=== PATIENT | male | born 1935 | race Caucasian/White ===

== ENCOUNTER → 2016-12-11 | Outpatient (CLI) | payer MEDICARE, OTHER ==
[~2016-12-11] MED LIST: ISOVUE-370 76% 100ML VIAL (Q9967) As Ordered ONE
--- NOTE | 2016-12-11 17:36 | REP ---
CT ANGIOGRAM ABDOMEN PELVIS: 12/11/2016: Comparison: CT chest abdomen pelvis without contrast 11/30/2014. Clinical history: Status post abdominal aortic aneurysm repair with aortic stent graft placement for a 6 cm abdominal aortic aneurysm in 2005 at [facility]. Technique. The patient received a bolus of 75 mL as of Isovue-370 scanning of the chest with coronal and sagittal reconstructions and MIP reformats with thick slab technique. Surface renderings with reconstruction rotated about the longitudinal axis of the body also performed for the aorta and branches. CT abdomen: There are small bilateral effusions right greater than left. Compressive atelectatic change seen. There is cardiomegaly with left atrial and ventricular enlargement. Multi lead pacer is noted as before. No hiatal hernia. Stomach grossly intact. Liver and spleen are not enlarged and without focal lesion. Adrenal glands are normal. Kidneys show lobation and atrophy. Exophytic cysts are noted off the interpolar lower pole and upper pole of the left kidney. No definite stone or hydronephrosis. No hydroureter. The gallbladder is absent. The pancreas shows no mass, ductal dilatation or inflammatory change. Small bowel loops and colon are unchanged with scattered diverticula representing some diverticulosis without diverticulitis or colitis in the abdomen proper. Lung window review of all CT slices abdomen pelvis shows no perforation or free air. The abdominal aorta shows a maximum AP diameter of 4.5 cm transverse diameter 4 cm in its mid-course. Infrarenal graft noted with the left common iliac showing flow and little or no flow is seen in the right common area. Little opacification of that artery. Surgical clips and atherosclerotic calcifications noted. The anterior aspect of the distal graft is opacified with soft tissue density suggesting thrombus which extends into the right common iliac limb of the graft. Contrast in the left common iliac reaches the femoral artery. No periaortic or other retroperitoneal pathologic sized lymphadenopathy. Small distal aortic saccular aneurysm is unchanged from that vessel. CT pelvis: The bladder is quite distended and has a large diverticulum off the anterolateral aspect on the left for at least 20 cm vertical x transverse 10.7 cm x AP 10.2 cm with a left anterolateral bladder diverticulum measuring 5.4 x 4.1 x 8.4 cm. There is no hydroureter or ureteral stone on either side. Extensive diverticulosis left colon and sigmoid without diverticulitis. There is no ascites, adenopathy or free air. No ventral or inguinal hernia. Impression: 1. 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 2. AP diameter of the aorta and now 4.5 x 4 cm at the superior aspect of the graft previous was 4.4 x 4.1 cm in the same area. Next 3. Renal atrophy without hydronephrosis or mass. There is a prominent distended bladder and a large prostate along with the left anterolateral diverticulum off the bladder. No other significant acute finding. Heavy atherosclerotic calcifications in the iliac and femoral vessels. Signed by Jreemias Keita MD 12/11/2016 08:15 P
== END ==
LOC: M RAD 13:19
PROVIDERS: ATTEND Nurse Practitioner
DX: Z51.81 Encounter for therapeutic drug level monitoring (principal); Z79.899 Other long term (current) drug therapy; Z86.79 Personal history of other diseases of the circulatory system; Z95.828 Presence of other vascular implants and grafts; I74.5 Embolism and thrombosis of iliac artery; N26.1 Atrophy of kidney (terminal); N40.0 Benign prostatic hyperplasia without lower urinary tract symptoms; R93.8 Abnormal findings on diagnostic imaging of other specified body structures
CPT/HCPCS: 74174; Q9967

== ENCOUNTER → 2016-12-26 | Outpatient (REF) | payer MEDICARE, OTHER | LOC: M LAB REF 16:55 | PROVIDERS: ATTEND Internal Medicine Medical Oncology | DX: D46.9 Myelodysplastic syndrome, unspecified (principal) ==

== ENCOUNTER → 2017-09-17 | Outpatient (REF) | payer MEDICARE, OTHER ==
[2017-09-17 13:22] LABS: URIC ACID 4.8 MG/DL (3.5-7.2)
[2017-09-17 13:33] LABS: PTH INTACT 171.1 PG/ML (18.5-88.0)
[2017-09-17 13:33] LABS: VITAMIN B12 LEVEL 350 PG/ML (247-911)
== END ==
LOC: M LAB REF 12:39
DX: M10.9 Gout, unspecified (principal); N18.3 Chronic kidney disease, stage 3 (moderate); D64.9 Anemia, unspecified
CPT/HCPCS: 82746

== ENCOUNTER → 2018-01-09 | Outpatient (CLI) | payer MEDICARE, OTHER ==
[2018-01-09 15:18] LABS: HEMATOCRIT 44.9 % (42.0-52.0); HEMOGLOBIN 14.9 g/dl (13.5-17.5); MEAN CORPUSCULAR HEMOGLOBIN 34.1 pg (27.0-33.0); MEAN CORPUSCULAR HGB CONC 33.2 g/dl (32.0-36.5); MEAN CORPUSCULAR VOLUME 102.7 fl (80.0-96.0); PLATELET COUNT, AUTOMATED 228 10^3/uL (150-450); RED BLOOD COUNT 4.37 10^6/uL (4.30-6.10); RED CELL DISTRIBUTION WIDTH 14.9 % (11.5-14.5)
[2018-01-09 15:26] LABS: APPEARANCE, URINE CLEAR (CLEAR); BACTERIA, URINE AUTO NEGATIVE (NEGATIVE); BILIRUBIN, URINE AUTO NEGATIVE (NEGATIVE); BLOOD, URINE BLOOD NEGATIVE (NEGATIVE); COLOR, URINE YELLOW (YELLOW); GLUCOSE, URINE (UA) AUTO NEGATIVE (NEGATIVE); KETONE, URINE AUTO NEGATIVE (NEGATIVE); LEUKOCYTE ESTERASE, URINE AUTO NEGATIVE (NEGATIVE); NITRITE, URINE AUTO NEGATIVE (NEGATIVE); PROTEIN, URINE AUTO NEGATIVE (NEGATIVE); RBC, URINE AUTO 1 /HPF (0-3); SPECIFIC GRAVITY URINE AUTO 1.009 (1.002-1.035); SQUAMOUS EPITHELIAL CELL UR AU 0 /HPF (0-6); UROBILINOGEN, URINE AUTO 0.2 mg/dL (0.0-2.0); WBC, URINE AUTO 1 /HPF (0-3)
[2018-01-09 15:43] LABS: ALBUMIN 3.8 GM/DL (3.2-5.2); ALBUMIN/GLOBULIN RATIO 1.06 (1.00-1.93); ALKALINE PHOSPHATASE 76 U/L (45-117); ALT/SGPT 19 U/L (12-78); ANION GAP 8 MEQ/L (8-16); AST/SGOT 21 U/L (7-37); BILIRUBIN,TOTAL 0.8 MG/DL (0.2-1.0); BLOOD UREA NITROGEN 22 MG/DL (7-18); CALCIUM LEVEL 9.2 MG/DL (8.8-10.2); CARBON DIOXIDE LEVEL 32 MEQ/L (21-32); CHLORIDE LEVEL 102 MEQ/L (98-107); CREATININE FOR GFR 2.16 MG/DL (0.70-1.30); GLOMERULAR FILTRATION RATE 31.2 (>35); GLUCOSE, FASTING 86 MG/DL (70-100); POTASSIUM SERUM 4.1 MEQ/L (3.5-5.1); SODIUM LEVEL 142 MEQ/L (136-145); TOTAL PROTEIN 7.4 GM/DL (6.4-8.2)
== END ==
LOC: M LAB 14:33
DX: N39.0 Urinary tract infection, site not specified (principal)
CPT/HCPCS: 80053

== ENCOUNTER → 2018-01-22 | Outpatient (REF) | payer MEDICARE, OTHER | LOC: M LAB REF 14:14 | DX: N39.0 Urinary tract infection, site not specified (principal) | CPT/HCPCS: 87086 ==

== ENCOUNTER → 2018-03-10 | Outpatient (CLI) | payer MEDICARE, OTHER | LOC: M RAD 16:19 | DX: R33.9 Retention of urine, unspecified (principal); N18.3 Chronic kidney disease, stage 3 (moderate); N40.1 Benign prostatic hyperplasia with lower urinary tract symptoms; N28.1 Cyst of kidney, acquired | CPT/HCPCS: 76775 ==

== ENCOUNTER → 2018-03-10 | Outpatient (REF) | payer MEDICARE, OTHER ==
[2018-03-12 18:03] LABS: PSA SCREENING 2.57 NG/ML (< 4.0)
== END ==
LOC: M LAB REF 17:08
DX: N40.1 Benign prostatic hyperplasia with lower urinary tract symptoms (principal); N18.3 Chronic kidney disease, stage 3 (moderate); R33.8 Other retention of urine; Z12.5 Encounter for screening for malignant neoplasm of prostate
CPT/HCPCS: G0103

== ENCOUNTER → 2018-05-04 | Outpatient (REF) | payer MEDICARE, OTHER ==
[2018-05-04 13:31] LABS: BACTERIA, URINE AUTO 1+ (NEGATIVE); RBC, URINE AUTO 12 /HPF (0-3); SQUAMOUS EPITHELIAL CELL UR AU 0 /HPF (0-6); WBC, URINE AUTO TNTC /HPF (0-3)
== END ==
LOC: M SMT 13:07
PROVIDERS: ATTEND Specialist
DX: R33.9 Retention of urine, unspecified (principal)
CPT/HCPCS: 51798; 81015; 87086; G0463

== ENCOUNTER → 2018-05-06 | Outpatient (REF) | payer MEDICARE, OTHER ==
[2018-05-06 14:02] LABS: BACTERIA, URINE AUTO 1+ (NEGATIVE); RBC, URINE AUTO 5 /HPF (0-3); SQUAMOUS EPITHELIAL CELL UR AU 0 /HPF (0-6); WBC, URINE AUTO TNTC /HPF (0-3)
== END ==
LOC: M SMT 13:20
PROVIDERS: ATTEND Specialist
DX: R33.9 Retention of urine, unspecified (principal)

== ENCOUNTER 2019-04-21 15:30 | Day surgery (SDC) | payer MEDICARE, OTHER ==
[~2019-04-21] VITALS: Ht 172.7 cm; Wt 78.0 kg
[~2019-04-21 15:30] MED LIST changes: +AMIODARONE HCL 150 MG/100 ML PREMIXED BAG (NEXTERONE) As Ordered ONE; +ATOR40TA75 PO; +BACITRACIN PWD 50,000 UNITS VIAL As Ordered ONE; +ELIQ2.5T PO; +FEBU80TA PO; +FINA5TAB2 PO; +IRON65TA2 PO; +ISOVUE-300 61% 50ML VIAL (Q9967) As Ordered ONE; -ISOVUE-370 76% 100ML VIAL (Q9967) As Ordered ONE; +LEVO30TA PO; +LIDOCAINE 1% MDV 20ML VIAL SQ PRN; +LIDOCAINE 1% SDV INJ 30 ML VIAL As Ordered ONE; +LOPR1TAB7 PO; +LR 1,000 ML IV ONE; +ROCA0.25 PO; +TORS10TA3 PO; +XALA0.007 OU
[2019-04-21] MEDS ORDERED: ceFAZolin 2 GM/D5W 50 ML IV BAG (J0690 PER 500MG) As Ordered ONE (15:55)
[2019-04-21] MEDS ORDERED: ONDANSETRON 4MG/2ML VIAL (J2405) As Ordered ONE (17:03)
[2019-04-21] MEDS ORDERED: PROPOFOL 200 MG/20 ML VIAL As Ordered ONE (17:03)
[2019-04-21] MEDS ORDERED: fentaNYL 100 MCG/2 ML INJECTION (J3010) As Ordered ONE (17:03)
[2019-04-21] MEDS ORDERED: ceFAZolin SOD 2 GM in IV 1 EA IV ONE (17:30)
[2019-04-21] MEDS ORDERED: LIDOCAINE 1% SDV INJ 30 ML VIAL As Ordered ONE (17:32)
[2019-04-21] MEDS ORDERED: BACITRACIN PWD 50,000 UNITS VIAL As Ordered ONE (17:32)
[2019-04-21 19:15] VITALS: BP 161/72
--- NOTE | 2019-04-22 07:58 | RO ---
DATE OF PROCEDURE: 04/21/2019 PROCEDURE: 1. Explantation of depleted pacemaker pulse generator. 2. Testing of old atrial and ventricular pacing leads. 3. Implantation of new dual-chamber pulse generator. IMPLANTING [employer] WEIGHER: Dr. Dhaval Lares ANESTHESIOLOGIST: Dr. Caba PREOPERATIVE DIAGNOSIS: 1. Pacemaker battery depletion. 2. Tachy-manjinder syndrome. 3. Paroxysmal atrial fibrillation. POSTOPERATIVE DIAGNOSIS: Same TYPE OF ANESTHESIA: Monitored local anesthesia. CLINICAL SUMMARY: This is a 83-year-old resident of [facility] is well-known to Dr. 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 Status post RCA PTCA 2004 with echocardiogram showing a normal left ventricular size and septal wall motion abnormality due to right ventricular pacing and global left ventricular systolic function, mildly depressed LVEF 40 - 45% with moderately severe mitral regurgitation, mild aortic stenosis and insufficiency and mild pulmonary hypertension. He has been quite active for his age continuing to play golf twice a week with stable effort dyspnea but no chest pain awareness of his heart action or dizziness. He was recently found to have his pacemaker approaching his elective replacement indicator. He was referred to our pacemaker service for device replacement. Pleasant bright elderly male [id number] with bilateral hearing aids. Medium body build heart rate 78 beats per minute, blood pressure 128/78, respiratory rate 16, O2 saturation 100 percent on room air. Weight 79.4 kg. No pallor or icterus, laying comfortably supine. Trachea midline. Jugular veins were not elevated. Normal chest configuration and expansion with pacemaker incision right cephalic groove. Good air entry over both lung winter with no abnormal pulmonary adventitious sounds. Apical impulse displaced laterally with normal S1, split S2. No audible gallop but least grade 3/6 holosystolic murmur at the apex. Normal carotid upstrokes and volume. No bruits. Upper extremity and lower extremity pulses were symmetrical and normal. No dependent edema. Soft abdomen. EKG March 08, 2019 showed consistent AV sequentially paced rhythm at 70 bpm. Paced QRS complexes with left axis and LBBB configuration in keeping with RV apical stimulation. Hemoglobin 13.6, electrolyte balance potassium 3.9, moderate renal insufficiency with BUN 22, creatinine 1.9. New heading in admission: The patient in the fasting state having signed informed consent and having received Ancef 2 grams IV premedication, the patient was taken to the operating theater. Numerous skin electrodes were applied to facilitate continuous electrocardiographic monitoring. The right subclavian region was prepped and draped in usual fashion. The skin over his old pacemaker incision was infiltrated with 1% Xylocaine and 85 cm later incision was made over the same site. Careful dissection was then performed down to the level of his depleted pacemaker which was then explanted ([employer] - model number p.m. 83466, serial number [id number]) originally implanted 03/30/2010. The atrial and ventricular pacing leads were then disconnected from the old the generator and tested independently individually. The right ventricular pacing lead ([employer] model number 4016P77, serial number [id number], measurements were: Stimulation threshold 1.0, V / 0.4 ms/ impedance 540 ohms. R wave amplitude measured 25 small am, V. The atrial lead ([employer] model number 9018S67, serial number [id number] measurements were: Stimulation threshold 0.75, V / 0.4 ms / impedance 480 ohms. The P wave amplitude measured 1.7 mV. These old leads were then connected to a new dual-chamber pulse generator that was MRI compatible ([employer]) Model number [id number] serial number [id number] and appropriate, DDD pacing was documented. The rate responsive feature this device will be activated in the recovery room. The old pacer pocket was thoroughly irrigated with bacitracin solution and the new pulse generator was placed pocket. Subcutaneous tissues were approximated using a running chromic suture and skin was closed using ashish. A dry dressing was applied. The patient was returned to the recovery room in good condition. Estimated blood loss less than five mL. No apparent complications. He will be monitored briefly until he is able to ambulate and tolerate by mouth and then he will be going home. DISCHARGE MEDICATIONS/RECOMMENDATIONS: The patient was advised to perform only light activities of daily living with his right arm until his ashish are removed in my office in approximately 710 days time. My office will be contacting him with an appointment in the morning. His diet will resume no added salt, low fat low cholesterol and other than his right arm limitation the patient should be able to ambulate normally. His medications will resume atorvastatin 40 mg daily, metoprolol tartrate 100 mg twice a day, potassium chloride 10 mg daily, torsemide 10 mg daily, Proscar 5 mg daily, Synthroid 25 mcg daily, calcitriol 0.25 mcg daily, Brinzolamide 1% opthalmic solution once daily and febuxostat 80 mg daily, and ferrous sulfate 325 mg by mouth twice a day He will be resuming his Eliquis 2.5 mg by mouth twice a day April 23/2019. If he has questions he should contact us promptly for any abnormal erythema, swelling or discharge. Once he is seen for his clinic visit / wound check and staple removal in 7-10 days, he will continue his regular cardiology followup with Dr. Maldonado [facility] here in [place].
== END 2019-04-21 19:20 | disposition home or self-care (01) ==
LOC: M SDC 15:30
PROVIDERS: ATTEND Internal Medicine Cardiovascular Disease
DX: Z45.010 Encounter for checking and testing of cardiac pacemaker pulse generator [battery] (principal); I49.5 Sick sinus syndrome; I10 Essential (primary) hypertension; E78.5 Hyperlipidemia, unspecified; I48.91 Unspecified atrial fibrillation; Z98.61 Coronary angioplasty status; I25.2 Old myocardial infarction; N40.0 Benign prostatic hyperplasia without lower urinary tract symptoms; G47.30 Sleep apnea, unspecified; Z79.01 Long term (current) use of anticoagulants; Z79.899 Other long term (current) drug therapy; Z87.891 Personal history of nicotine dependence
CPT/HCPCS: 33228; C1785; J0690; J2405; J3010

== ENCOUNTER → 2019-10-14 | Outpatient (REF) | payer MEDICARE, OTHER ==
[~2019-10-14] MED LIST changes: -AMIODARONE HCL 150 MG/100 ML PREMIXED BAG (NEXTERONE) As Ordered ONE; -BACITRACIN PWD 50,000 UNITS VIAL As Ordered ONE; -ISOVUE-300 61% 50ML VIAL (Q9967) As Ordered ONE; -LIDOCAINE 1% MDV 20ML VIAL SQ PRN; -LIDOCAINE 1% SDV INJ 30 ML VIAL As Ordered ONE; -LR 1,000 ML IV ONE
[2019-10-14 17:50] LABS: FREE T4 0.98 NG/DL (0.76-1.46)
== END ==
LOC: M LAB REF 16:42
PROVIDERS: ATTEND Internal Medicine Nephrology
DX: E03.9 Hypothyroidism, unspecified (principal)

== ENCOUNTER → 2020-04-20 | Outpatient (REF) | payer MEDICARE, OTHER | LOC: M LAB REF 16:15 | PROVIDERS: ATTEND Family Medicine | DX: I12.9 Hypertensive chronic kidney disease with stage 1 through stage 4 chronic kidney disease, or unspecified chronic kidney disease (principal); D64.9 Anemia, unspecified ==

== ENCOUNTER 2022-06-11 13:46 | Inpatient (IN) | payer MEDICARE, OTHER ==
[~2022-06-11] VITALS: Ht 172.7 cm; Wt 74.8 kg
[2022-06-11 15:24] LABS: BASO % 0.2 % (0.0-1.0); HEMATOCRIT 34.2 % (42.0-52.0); HEMOGLOBIN 11.4 g/dl (13.5-17.5); LYMPH # 0.3 10^3/uL (1.5-5.0); LYMPH % 2.3 % (24.0-44.0); MEAN CORPUSCULAR HEMOGLOBIN 33.5 pg (27.0-33.0); MEAN CORPUSCULAR HGB CONC 33.3 g/dl (32.0-36.5); MEAN CORPUSCULAR VOLUME 100.6 fl (80.0-96.0); MONO # 0.7 10^3/uL (0.0-0.8); NEUTROPHILS # 12.2 10^3/uL (1.5-8.5); NEUTROPHILS % 91.8 % (36.0-66.0); PLATELET COUNT, AUTOMATED 229 10^3/uL (150-450); WHITE BLOOD COUNT 13.3 10^3/uL (4.0-10.0)
[2022-06-11 15:51] LABS: BILIRUBIN,DIRECT 0.4 MG/DL (<0.4)
[2022-06-11 15:52] LABS: ALBUMIN 2.2 G/DL (3.2-5.2); BILIRUBIN,TOTAL 0.9 MG/DL (0.3-1.2); CALCIUM LEVEL 8.1 MG/DL (8.3-10.6); CREATININE FOR GFR 1.92 MG/DL (0.70-1.30); GLOMERULAR FILTRATION RATE 35.4 (>35); POTASSIUM SERUM 4.3 MMOL/L (3.5-5.1); TOTAL PROTEIN 5.8 G/DL (5.7-8.2)
[2022-06-11 15:53] LABS: RSV AMPLIFICATION NEGATIVE (NEGATIVE)
[2022-06-11] MEDS ORDERED: SERT25TA21 PO (17:03)
[2022-06-11] MEDS ORDERED: HOME MED LIST COMPLETE! XX SCH (17:05)
[2022-06-11] MEDS ORDERED: ACETAMINOPHEN TAB 650MG DOSE (2X325MG) PO PRN (17:35)
[2022-06-11] MEDS ORDERED: FLUID PLACE HOLDER IV SCH (17:40)
[2022-06-11] MEDS ORDERED: VANCOMYCIN HCL IV SCH (17:40)
[2022-06-11] MEDS ORDERED: VANCOMYCIN HCL 750 MG, VIAL MATE ADAPTER 1 EACH in D5W 250 ML IV ONE ×2 (18:00→19:00)
[2022-06-11 19:06] LABS: C REACTIVE PROTEIN QUANTITATIV 16.4 MG/DL (<1.0)
[2022-06-11 19:17] LABS: ERYTHROCYTE SEDIMENTATION RATE 79 mm/hr (0-20)
[2022-06-11] MEDS: cefTRIAXone SOD 1 GM in D5W MINI-BAG PLUS 50 ML IV SCH (20:46)
[2022-06-11] MEDS: guaiFENesin ER 600 MG TAB PO SCH (20:47)
[2022-06-11] MEDS: APIXABAN 2.5 MG TAB (ELIQUIS) PO SCH (20:47)
[2022-06-11] MEDS: LATANOPROST 0.005% OPHTH SOLN 2.5 ML OU SCH (20:53)
[2022-06-11] MEDS: DOXYCYCLINE HYCLATE 100 MG in D5W MINI-BAG PLUS 100 ML IV SCH (20:53)
[2022-06-11] MEDS: METOPROLOL TARTRATE 100MG TAB PO SCH (20:53)
[2022-06-12] MEDS: LEVOTHYROXINE 25MCG TABLET (0.025MG) PO SCH (06:09)
[2022-06-12 06:30] LABS: BASO % 0.2 % (0.0-1.0); HEMATOCRIT 32.6 % (42.0-52.0); HEMOGLOBIN 10.9 g/dl (13.5-17.5); LYMPH # 0.4 10^3/uL (1.5-5.0); LYMPH % 2.9 % (24.0-44.0); MEAN CORPUSCULAR HEMOGLOBIN 33.3 pg (27.0-33.0); MEAN CORPUSCULAR HGB CONC 33.4 g/dl (32.0-36.5); MEAN CORPUSCULAR VOLUME 99.7 fl (80.0-96.0); MONO # 0.7 10^3/uL (0.0-0.8); MONO % 4.8 % (2.0-8.0); NEUTROPHILS # 13.4 10^3/uL (1.5-8.5); NEUTROPHILS % 91.4 % (36.0-66.0); PLATELET COUNT, AUTOMATED 203 10^3/uL (150-450); RED BLOOD COUNT 3.27 10^6/uL (4.30-6.10); WHITE BLOOD COUNT 14.7 10^3/uL (4.0-10.0)
[2022-06-12 06:59] LABS: CREATININE FOR GFR 1.73 MG/DL (0.70-1.30)
[2022-06-12] MEDS: ATORVASTATIN 20 MG TAB PO SCH (07:37)
[2022-06-12] MEDS: SERTRALINE HCL 25 MG TABLET PO SCH (07:37)
[2022-06-12] MEDS: VANCOMYCIN HCL 1,000 MG, VIAL MATE ADAPTER 1 EACH in D5W 250 ML IV SCH (07:37)
[2022-06-12] MEDS: APIXABAN 2.5 MG TAB (ELIQUIS) PO SCH ×2 (07:37→20:33)
[2022-06-12] MEDS: guaiFENesin ER 600 MG TAB PO SCH ×2 (07:37→20:33)
[2022-06-12] MEDS: METOPROLOL TARTRATE 100MG TAB PO SCH ×2 (07:38→20:33)
[2022-06-12] MEDS: CALCITRIOL 0.25 MCG CAP (S0169) PO SCH (08:39)
[2022-06-12] MEDS: FEBUXOSTAT 40 MG TABLET (ULORIC) PO SCH (08:39)
[2022-06-12] MEDS: DOXYCYCLINE HYCLATE 100 MG in D5W MINI-BAG PLUS 100 ML IV SCH (08:39)
[2022-06-12] MEDS ORDERED: METOPROLOL TARTRATE 100MG TAB PO ONE (13:45)
[2022-06-12] MEDS ORDERED: METOPROLOL 5 MG/5 ML VIAL IV ONE (13:45)
[2022-06-12 17:45] VITALS: BP 137/73
[2022-06-12 20:16] VITALS: BP 120/73
[2022-06-12] MEDS: cefTRIAXone SOD 1 GM in D5W MINI-BAG PLUS 50 ML IV SCH (20:33)
[2022-06-12] MEDS: LATANOPROST 0.005% OPHTH SOLN 2.5 ML OU SCH (20:35)
[2022-06-13 00:10] VITALS: BP 105/56
[2022-06-13 04:36] VITALS: BP 120/65
[2022-06-13] MEDS: LEVOTHYROXINE 25MCG TABLET (0.025MG) PO SCH (05:04)
[2022-06-13 07:19] LABS: BASO % 0.1 % (0.0-1.0); EOS % 0.1 % (0.0-3.0); HEMATOCRIT 31.9 % (42.0-52.0); HEMOGLOBIN 10.5 g/dl (13.5-17.5); LYMPH # 0.5 10^3/uL (1.5-5.0); LYMPH % 4.8 % (24.0-44.0); MEAN CORPUSCULAR HEMOGLOBIN 32.8 pg (27.0-33.0); MEAN CORPUSCULAR HGB CONC 32.9 g/dl (32.0-36.5); MEAN CORPUSCULAR VOLUME 99.7 fl (80.0-96.0); MONO # 0.6 10^3/uL (0.0-0.8); MONO % 6.1 % (2.0-8.0); NEUTROPHILS # 8.7 10^3/uL (1.5-8.5); NEUTROPHILS % 88.2 % (36.0-66.0); PLATELET COUNT, AUTOMATED 196 10^3/uL (150-450); WHITE BLOOD COUNT 9.9 10^3/uL (4.0-10.0)
[2022-06-13 07:38] LABS: C REACTIVE PROTEIN QUANTITATIV 13.1 MG/DL (<1.0); VANCOMYCIN LEVEL TROUGH 13.2 UG/ML (10.0-20.0)
[2022-06-13 07:39] LABS: CREATININE FOR GFR 1.68 MG/DL (0.70-1.30); GLOMERULAR FILTRATION RATE 41.4 (>35)
[2022-06-13 08:00] VITALS: BP 123/66
[2022-06-13] MEDS: METOPROLOL TARTRATE 100MG TAB PO SCH ×2 (08:14→21:17)
[2022-06-13] MEDS: guaiFENesin ER 600 MG TAB PO SCH ×2 (08:14→21:16)
[2022-06-13] MEDS: SERTRALINE HCL 25 MG TABLET PO SCH (08:14)
[2022-06-13] MEDS: CALCITRIOL 0.25 MCG CAP (S0169) PO SCH (08:14)
[2022-06-13] MEDS: APIXABAN 2.5 MG TAB (ELIQUIS) PO SCH ×2 (08:14→21:17)
[2022-06-13] MEDS: FEBUXOSTAT 40 MG TABLET (ULORIC) PO SCH (08:14)
[2022-06-13] MEDS: ATORVASTATIN 20 MG TAB PO SCH (08:14)
[2022-06-13] MEDS: VANCOMYCIN HCL 1,000 MG, VIAL MATE ADAPTER 1 EACH in D5W 250 ML IV SCH (08:15)
[2022-06-13] MEDS ORDERED: cefTRIAXone SOD 1 GM in D5W MINI-BAG PLUS 50 ML IV SCH (10:50)
[2022-06-13 11:58] VITALS: BP 109/63
[2022-06-13] MEDS: cefTRIAXone SOD 2 GM in D5W MINI-BAG PLUS 50 ML IV SCH ×2 (13:03→23:32)
[2022-06-13] MEDS: AMPICILLIN SOD 2 GM in D5W MINI-BAG PLUS 100 ML IV SCH ×2 (13:50→18:45)
[2022-06-13] MEDS ORDERED: RAMELTEON 8 MG TAB (ROZEREM) PO PRN (14:45)
[2022-06-13 16:07] VITALS: BP 131/69
[2022-06-13] MEDS: DRONABINOL 2.5MG CAP (MARINOL) PO SCH (17:55)
[2022-06-13 20:37] VITALS: BP 127/64
[2022-06-13] MEDS: LATANOPROST 0.005% OPHTH SOLN 2.5 ML OU SCH (21:17)
[2022-06-14] MEDS: AMPICILLIN SOD 2 GM in D5W MINI-BAG PLUS 100 ML IV SCH ×3 (00:22→12:26)
[2022-06-14 00:41] VITALS: BP 127/58
[2022-06-14 04:41] VITALS: BP 117/63
[2022-06-14] MEDS: LEVOTHYROXINE 25MCG TABLET (0.025MG) PO SCH (06:10)
[2022-06-14 06:25] LABS: BASO % 0.2 % (0.0-1.0); EOS % 0.3 % (0.0-3.0); HEMATOCRIT 30.6 % (42.0-52.0); HEMOGLOBIN 10.3 g/dl (13.5-17.5); LYMPH # 0.4 10^3/uL (1.5-5.0); LYMPH % 4.1 % (24.0-44.0); MEAN CORPUSCULAR HEMOGLOBIN 33.7 pg (27.0-33.0); MEAN CORPUSCULAR HGB CONC 33.7 g/dl (32.0-36.5); MONO # 0.8 10^3/uL (0.0-0.8); MONO % 7.5 % (2.0-8.0); PLATELET COUNT, AUTOMATED 201 10^3/uL (150-450); RED BLOOD COUNT 3.06 10^6/uL (4.30-6.10); WHITE BLOOD COUNT 10.3 10^3/uL (4.0-10.0)
[2022-06-14 06:45] LABS: C REACTIVE PROTEIN QUANTITATIV 10.6 MG/DL (<1.0); VANCOMYCIN LEVEL TROUGH 15.9 UG/ML (10.0-20.0)
[2022-06-14 06:46] LABS: CALCIUM LEVEL 8.3 MG/DL (8.3-10.6); CREATININE FOR GFR 1.71 MG/DL (0.70-1.30); GLOMERULAR FILTRATION RATE 40.5 (>35); POTASSIUM SERUM 4.3 MMOL/L (3.5-5.1)
[2022-06-14] MEDS ORDERED: LIDOCAINE 1% MDV 20ML VIAL As Ordered ONE (07:44)
[2022-06-14] MEDS ORDERED: FERROUS SULFATE 325MG TAB PO SCH (09:00)
[2022-06-14 09:15] VITALS: BP 115/56
[2022-06-14] MEDS: APIXABAN 2.5 MG TAB (ELIQUIS) PO SCH (09:22)
[2022-06-14] MEDS: guaiFENesin ER 600 MG TAB PO SCH (09:22)
[2022-06-14] MEDS: FEBUXOSTAT 40 MG TABLET (ULORIC) PO SCH (09:22)
[2022-06-14] MEDS: ATORVASTATIN 20 MG TAB PO SCH (09:22)
[2022-06-14] MEDS: DRONABINOL 2.5MG CAP (MARINOL) PO SCH ×2 (09:23→11:33)
[2022-06-14 09:24] VITALS: BP 115/56
[2022-06-14] MEDS: METOPROLOL TARTRATE 100MG TAB PO SCH (09:24)
[2022-06-14] MEDS: SERTRALINE HCL 25 MG TABLET PO SCH (09:24)
[2022-06-14] MEDS: CALCITRIOL 0.25 MCG CAP (S0169) PO SCH (09:24)
[2022-06-14] MEDS ORDERED: SODIUM CHLORIDE 0.9% INJ 10 ML SYR IV PRN (09:25)
[2022-06-14] MEDS ORDERED: DRON2.5C11 PO (11:18)
[2022-06-14] MEDS ORDERED: MUCI600T31 PO (11:18)
[2022-06-14] MEDS ORDERED: AMPI2INJ3 IV (11:18)
[2022-06-14] MEDS ORDERED: CEFT1INJ65 IV (11:18)
[2022-06-14] MEDS: cefTRIAXone SOD 2 GM in D5W MINI-BAG PLUS 50 ML IV SCH (11:33)
[2022-06-14 12:26] VITALS: BP 114/61
[2022-06-14] MEDS ORDERED: SODIUM CHLORIDE 0.9% INJ 10 ML SYR IV SCH (18:00)
== END 2022-06-14 13:24 | disposition other institution (70) | DRG 289 ==
LOC: M ED 13:46 → M ED INP 18:08 → ENRESERV 06-12 16:34 → M PCU 06-12 17:30
PROVIDERS: ADMIT Internal Medicine; ATTEND Internal Medicine
PROC: B246ZZZ Ultrasonography of Right and Left Heart (ICD-10-PCS; 2022-06-11)
PROC: 05H533Z Insertion of Infusion Device into Right Subclavian Vein, Percutaneous Approach (ICD-10-PCS; principal; 2022-06-14 16:00)
DX: I33.0 Acute and subacute infective endocarditis (principal); N18.4 Chronic kidney disease, stage 4 (severe); J90 Pleural effusion, not elsewhere classified; I48.91 Unspecified atrial fibrillation; H26.9 Unspecified cataract; Z95.0 Presence of cardiac pacemaker; I25.2 Old myocardial infarction; N31.9 Neuromuscular dysfunction of bladder, unspecified; F32.A Depression, unspecified; E03.9 Hypothyroidism, unspecified; D50.9 Iron deficiency anemia, unspecified; I12.9 Hypertensive chronic kidney disease with stage 1 through stage 4 chronic kidney disease, or unspecified chronic kidney disease; N40.0 Benign prostatic hyperplasia without lower urinary tract symptoms; G47.33 Obstructive sleep apnea (adult) (pediatric); M10.9 Gout, unspecified; M19.90 Unspecified osteoarthritis, unspecified site; Z98.41 Cataract extraction status, right eye; Z98.42 Cataract extraction status, left eye; Z90.49 Acquired absence of other specified parts of digestive tract; Z87.891 Personal history of nicotine dependence; Z79.890 Hormone replacement therapy; Z79.02 Long term (current) use of antithrombotics/antiplatelets; Z79.899 Other long term (current) drug therapy; Z88.2 Allergy status to sulfonamides; Z66 Do not resuscitate; Z95.828 Presence of other vascular implants and grafts

== ENCOUNTER 2022-06-14 11:30 | Inpatient (IN) | payer MEDICARE, OTHER ==
[~2022-06-14] VITALS: Ht 172.7 cm; Wt 70.5 kg
[~2022-06-14 11:30] MED LIST changes: +AMPI2INJ3 IV; +CEFT1INJ65 IV; +DRON2.5C11 PO; +MUCI600T31 PO; +SERT25TA21 PO
[2022-06-14] MEDS ORDERED: RAMELTEON 8 MG TAB (ROZEREM) PO PRN (12:10)
[2022-06-14] MEDS ORDERED: AMPICILLIN SOD/SULBACTAM SOD 2 GM in D5W MINI-BAG PLUS 50 ML IV SCH (12:10)
[2022-06-14] MEDS ORDERED: BISACODYL 10MG SUPP PR PRN (12:10)
[2022-06-14] MEDS ORDERED: ACETAMINOPHEN TAB 650MG DOSE (2X325MG) PO PRN (12:10)
[2022-06-14 13:35] VITALS: BP 121/63
[2022-06-14] MEDS ORDERED: HOME MED LIST COMPLETE! XX SCH (13:50)
[2022-06-14 14:00] VITALS: BP 121/63
[2022-06-14] MEDS: guaiFENesin 200 MG TAB PO SCH ×2 (17:20→20:06)
[2022-06-14] MEDS: PANTOPRAZOLE 40MG TAB (PROTONIX) PO SCH (17:20)
[2022-06-14] MEDS: AMPICILLIN SOD 2 GM in D5W MINI-BAG PLUS 100 ML IV SCH ×2 (17:20→23:43)
[2022-06-14] MEDS: DRONABINOL 2.5MG CAP (MARINOL) PO SCH (17:20)
[2022-06-14 19:20] VITALS: BP 112/66
[2022-06-14] MEDS: DOCUSATE SODIUM 100MG CAPSULE PO SCH (20:05)
[2022-06-14] MEDS: APIXABAN 2.5 MG TAB (ELIQUIS) PO SCH (20:05)
[2022-06-14] MEDS: SENNA 8.6 MG TAB (SENOKOT) PO SCH (20:05)
[2022-06-14] MEDS: LATANOPROST 0.005% OPHTH SOLN 2.5 ML OU SCH (20:06)
[2022-06-14] MEDS: METOPROLOL TARTRATE 100MG TAB PO SCH (20:06)
[2022-06-15] MEDS: cefTRIAXone SOD 2 GM in D5W MINI-BAG PLUS 50 ML IV SCH ×3 (01:13→23:11)
[2022-06-15] MEDS: SODIUM CHLORIDE 0.9% INJ 10 ML SYR IV PRN ×2 (01:15→06:51)
[2022-06-15 05:21] VITALS: BP 117/63
[2022-06-15 06:03] LABS: BASO % 0.3 % (0.0-1.0); EOS # 0.1 10^3/uL (0.0-0.5); EOS % 0.7 % (0.0-3.0); HEMATOCRIT 30.3 % (42.0-52.0); HEMOGLOBIN 9.9 g/dl (13.5-17.5); LYMPH # 0.4 10^3/uL (1.5-5.0); LYMPH % 4.8 % (24.0-44.0); MEAN CORPUSCULAR HEMOGLOBIN 32.8 pg (27.0-33.0); MEAN CORPUSCULAR HGB CONC 32.7 g/dl (32.0-36.5); MEAN CORPUSCULAR VOLUME 100.3 fl (80.0-96.0); MONO # 0.7 10^3/uL (0.0-0.8); MONO % 9.3 % (2.0-8.0); NEUTROPHILS # 6.4 10^3/uL (1.5-8.5); NEUTROPHILS % 84.2 % (36.0-66.0); PLATELET COUNT, AUTOMATED 204 10^3/uL (150-450); RED BLOOD COUNT 3.02 10^6/uL (4.30-6.10); WHITE BLOOD COUNT 7.5 10^3/uL (4.0-10.0)
[2022-06-15] MEDS: AMPICILLIN SOD 2 GM in D5W MINI-BAG PLUS 100 ML IV SCH ×4 (06:05→23:08)
[2022-06-15] MEDS: LEVOTHYROXINE 25MCG TABLET (0.025MG) PO SCH (06:05)
[2022-06-15 06:19] LABS: ALBUMIN 1.9 G/DL (3.2-5.2); BILIRUBIN,TOTAL 0.5 MG/DL (0.3-1.2); CALCIUM LEVEL 8.7 MG/DL (8.3-10.6); CREATININE FOR GFR 1.78 MG/DL (0.70-1.30); GLOMERULAR FILTRATION RATE 38.7 (>35); POTASSIUM SERUM 4.2 MMOL/L (3.5-5.1); TOTAL PROTEIN 5.2 G/DL (5.7-8.2)
[2022-06-15] MEDS: DOCUSATE SODIUM 100MG CAPSULE PO SCH ×2 (08:21→20:10)
[2022-06-15] MEDS: DRONABINOL 2.5MG CAP (MARINOL) PO SCH ×3 (08:21→17:13)
[2022-06-15] MEDS: ATORVASTATIN 20 MG TAB PO SCH (08:21)
[2022-06-15] MEDS: APIXABAN 2.5 MG TAB (ELIQUIS) PO SCH ×2 (08:21→20:08)
[2022-06-15] MEDS: FEBUXOSTAT 40 MG TABLET (ULORIC) PO SCH (08:22)
[2022-06-15] MEDS: guaiFENesin 200 MG TAB PO SCH ×3 (08:22→20:08)
[2022-06-15] MEDS: CALCITRIOL 0.25 MCG CAP (S0169) PO SCH (08:22)
[2022-06-15] MEDS: PANTOPRAZOLE 40MG TAB (PROTONIX) PO SCH (08:22)
[2022-06-15] MEDS: METOPROLOL TARTRATE 100MG TAB PO SCH ×2 (08:23→20:10)
[2022-06-15] MEDS: SERTRALINE HCL 25 MG TABLET PO SCH (09:19)
[2022-06-15 14:00] VITALS: BP 103/56
[2022-06-15 20:00] VITALS: BP 112/62
[2022-06-15] MEDS: SENNA 8.6 MG TAB (SENOKOT) PO SCH (20:10)
[2022-06-15] MEDS: LATANOPROST 0.005% OPHTH SOLN 2.5 ML OU SCH (20:11)
[2022-06-16] MEDS: LEVOTHYROXINE 25MCG TABLET (0.025MG) PO SCH (05:56)
[2022-06-16] MEDS: AMPICILLIN SOD 2 GM in D5W MINI-BAG PLUS 100 ML IV SCH ×4 (05:56→23:59)
[2022-06-16 06:00] VITALS: BP 119/64
[2022-06-16] MEDS: guaiFENesin 200 MG TAB PO SCH ×3 (06:47→20:26)
[2022-06-16] MEDS: DRONABINOL 2.5MG CAP (MARINOL) PO SCH ×3 (06:47→17:30)
[2022-06-16] MEDS: METOPROLOL TARTRATE 100MG TAB PO SCH ×2 (06:48→20:25)
[2022-06-16] MEDS: SERTRALINE HCL 25 MG TABLET PO SCH (06:48)
[2022-06-16] MEDS: PANTOPRAZOLE 40MG TAB (PROTONIX) PO SCH (06:48)
[2022-06-16] MEDS: APIXABAN 2.5 MG TAB (ELIQUIS) PO SCH ×2 (06:48→20:26)
[2022-06-16] MEDS: ATORVASTATIN 20 MG TAB PO SCH (06:48)
[2022-06-16] MEDS: DOCUSATE SODIUM 100MG CAPSULE PO SCH ×2 (06:48→20:25)
[2022-06-16] MEDS: CALCITRIOL 0.25 MCG CAP (S0169) PO SCH (06:48)
[2022-06-16] MEDS: FEBUXOSTAT 40 MG TABLET (ULORIC) PO SCH (06:49)
[2022-06-16] MEDS: cefTRIAXone SOD 2 GM in D5W MINI-BAG PLUS 50 ML IV SCH (11:55)
[2022-06-16 13:53] VITALS: BP 146/67
[2022-06-16 14:02] VITALS: BP 96/57
[2022-06-16 19:25] VITALS: BP 111/65
[2022-06-16] MEDS: SENNA 8.6 MG TAB (SENOKOT) PO SCH (20:25)
[2022-06-16] MEDS: LATANOPROST 0.005% OPHTH SOLN 2.5 ML OU SCH (20:27)
[2022-06-17] MEDS: cefTRIAXone SOD 2 GM in D5W MINI-BAG PLUS 50 ML IV SCH ×3 (00:45→23:27)
[2022-06-17] MEDS: LEVOTHYROXINE 25MCG TABLET (0.025MG) PO SCH (05:33)
[2022-06-17] MEDS: AMPICILLIN SOD 2 GM in D5W MINI-BAG PLUS 100 ML IV SCH ×3 (05:34→17:44)
[2022-06-17 05:46] VITALS: BP 117/57
[2022-06-17 06:07] LABS: BASO % 0.5 % (0.0-1.0); EOS # 0.1 10^3/uL (0.0-0.5); EOS % 0.9 % (0.0-3.0); HEMATOCRIT 30.8 % (42.0-52.0); HEMOGLOBIN 9.9 g/dl (13.5-17.5); LYMPH # 0.4 10^3/uL (1.5-5.0); LYMPH % 5.8 % (24.0-44.0); MEAN CORPUSCULAR HEMOGLOBIN 32.6 pg (27.0-33.0); MEAN CORPUSCULAR HGB CONC 32.1 g/dl (32.0-36.5); MEAN CORPUSCULAR VOLUME 101.3 fl (80.0-96.0); MONO # 0.7 10^3/uL (0.0-0.8); MONO % 9.6 % (2.0-8.0); NEUTROPHILS # 6.3 10^3/uL (1.5-8.5); NEUTROPHILS % 82.7 % (36.0-66.0); PLATELET COUNT, AUTOMATED 209 10^3/uL (150-450); RED BLOOD COUNT 3.04 10^6/uL (4.30-6.10); WHITE BLOOD COUNT 7.6 10^3/uL (4.0-10.0)
[2022-06-17 06:30] LABS: CALCIUM LEVEL 8.5 MG/DL (8.3-10.6); CREATININE FOR GFR 1.96 MG/DL (0.70-1.30); GLOMERULAR FILTRATION RATE 34.6 (>35); POTASSIUM SERUM 4.1 MMOL/L (3.5-5.1)
[2022-06-17] MEDS: FEBUXOSTAT 40 MG TABLET (ULORIC) PO SCH (08:34)
[2022-06-17] MEDS: SERTRALINE HCL 25 MG TABLET PO SCH (08:34)
[2022-06-17] MEDS: METOPROLOL TARTRATE 100MG TAB PO SCH ×2 (08:35→20:01)
[2022-06-17] MEDS: FERROUS SULFATE 325MG TAB PO SCH (08:35)
[2022-06-17] MEDS: DOCUSATE SODIUM 100MG CAPSULE PO SCH ×2 (08:35→20:00)
[2022-06-17] MEDS: DRONABINOL 2.5MG CAP (MARINOL) PO SCH (08:35)
[2022-06-17] MEDS: APIXABAN 2.5 MG TAB (ELIQUIS) PO SCH ×2 (08:35→20:01)
[2022-06-17] MEDS: guaiFENesin 200 MG TAB PO SCH ×3 (08:35→20:00)
[2022-06-17] MEDS: PANTOPRAZOLE 40MG TAB (PROTONIX) PO SCH (08:36)
[2022-06-17] MEDS: ATORVASTATIN 20 MG TAB PO SCH (08:36)
[2022-06-17] MEDS: CALCITRIOL 0.25 MCG CAP (S0169) PO SCH (09:00)
[2022-06-17 14:47] VITALS: BP 130/61
[2022-06-17] MEDS: SODIUM CHLORIDE 0.9% INJ 10 ML SYR IV PRN (15:11)
[2022-06-17] MEDS: SODIUM CHLORIDE 0.9% INJ 10 ML SYR IV SCH (17:46)
[2022-06-17 19:30] VITALS: BP 136/72
[2022-06-17] MEDS: SENNA 8.6 MG TAB (SENOKOT) PO SCH (20:01)
[2022-06-17] MEDS: LATANOPROST 0.005% OPHTH SOLN 2.5 ML OU SCH (20:01)
[2022-06-18] MEDS: AMPICILLIN SOD 2 GM in D5W MINI-BAG PLUS 100 ML IV SCH ×5 (00:05→23:40)
[2022-06-18] MEDS: SODIUM CHLORIDE 0.9% INJ 10 ML SYR IV PRN (00:37)
[2022-06-18 06:01] VITALS: BP 151/67
[2022-06-18] MEDS: LEVOTHYROXINE 25MCG TABLET (0.025MG) PO SCH (06:15)
[2022-06-18] MEDS: SODIUM CHLORIDE 0.9% INJ 10 ML SYR IV SCH ×2 (06:16→17:39)
[2022-06-18] MEDS: APIXABAN 2.5 MG TAB (ELIQUIS) PO SCH ×2 (08:39→20:22)
[2022-06-18] MEDS: FEBUXOSTAT 40 MG TABLET (ULORIC) PO SCH (08:40)
[2022-06-18] MEDS: guaiFENesin 200 MG TAB PO SCH ×3 (08:40→20:23)
[2022-06-18] MEDS: ATORVASTATIN 20 MG TAB PO SCH (08:40)
[2022-06-18] MEDS: SERTRALINE HCL 25 MG TABLET PO SCH (08:40)
[2022-06-18] MEDS: CALCITRIOL 0.25 MCG CAP (S0169) PO SCH (08:40)
[2022-06-18] MEDS: DOCUSATE SODIUM 100MG CAPSULE PO SCH ×2 (08:40→20:22)
[2022-06-18] MEDS: PANTOPRAZOLE 40MG TAB (PROTONIX) PO SCH (08:41)
[2022-06-18] MEDS: METOPROLOL TARTRATE 100MG TAB PO SCH ×2 (08:41→20:23)
[2022-06-18] MEDS: cefTRIAXone SOD 2 GM in D5W MINI-BAG PLUS 50 ML IV SCH ×2 (12:42→23:02)
[2022-06-18 19:18] VITALS: BP 118/62
[2022-06-18] MEDS: SENNA 8.6 MG TAB (SENOKOT) PO SCH (20:22)
[2022-06-18] MEDS: LATANOPROST 0.005% OPHTH SOLN 2.5 ML OU SCH (20:23)
[2022-06-19] MEDS: SODIUM CHLORIDE 0.9% INJ 10 ML SYR IV PRN (00:15)
[2022-06-19] MEDS: LEVOTHYROXINE 25MCG TABLET (0.025MG) PO SCH (05:24)
[2022-06-19] MEDS: AMPICILLIN SOD 2 GM in D5W MINI-BAG PLUS 100 ML IV SCH ×4 (05:24→23:30)
[2022-06-19] MEDS: SODIUM CHLORIDE 0.9% INJ 10 ML SYR IV SCH ×2 (05:25→17:05)
[2022-06-19 05:37] LABS: BASO % 0.2 % (0.0-1.0); HEMATOCRIT 29.1 % (42.0-52.0); HEMOGLOBIN 9.5 g/dl (13.5-17.5); LYMPH # 0.6 10^3/uL (1.5-5.0); LYMPH % 5.7 % (24.0-44.0); MEAN CORPUSCULAR HEMOGLOBIN 33.1 pg (27.0-33.0); MEAN CORPUSCULAR HGB CONC 32.6 g/dl (32.0-36.5); MEAN CORPUSCULAR VOLUME 101.4 fl (80.0-96.0); MONO # 0.9 10^3/uL (0.0-0.8); MONO % 8.9 % (2.0-8.0); NEUTROPHILS # 8.1 10^3/uL (1.5-8.5); NEUTROPHILS % 84.6 % (36.0-66.0); PLATELET COUNT, AUTOMATED 226 10^3/uL (150-450); RED BLOOD COUNT 2.87 10^6/uL (4.30-6.10); WHITE BLOOD COUNT 9.6 10^3/uL (4.0-10.0)
[2022-06-19 06:00] VITALS: BP 119/72
[2022-06-19 06:17] LABS: CALCIUM LEVEL 8.3 MG/DL (8.3-10.6); CREATININE FOR GFR 1.92 MG/DL (0.70-1.30); GLOMERULAR FILTRATION RATE 35.4 (>35); POTASSIUM SERUM 4.2 MMOL/L (3.5-5.1)
[2022-06-19] MEDS: PANTOPRAZOLE 40MG TAB (PROTONIX) PO SCH (08:21)
[2022-06-19] MEDS: APIXABAN 2.5 MG TAB (ELIQUIS) PO SCH ×2 (08:21→20:06)
[2022-06-19] MEDS: DOCUSATE SODIUM 100MG CAPSULE PO SCH ×2 (08:21→20:09)
[2022-06-19] MEDS: CALCITRIOL 0.25 MCG CAP (S0169) PO SCH (08:21)
[2022-06-19] MEDS: ATORVASTATIN 20 MG TAB PO SCH (08:22)
[2022-06-19] MEDS: FEBUXOSTAT 40 MG TABLET (ULORIC) PO SCH (08:22)
[2022-06-19] MEDS: guaiFENesin 200 MG TAB PO SCH ×3 (08:22→20:06)
[2022-06-19] MEDS: METOPROLOL TARTRATE 100MG TAB PO SCH ×2 (08:22→20:07)
[2022-06-19] MEDS: SERTRALINE HCL 25 MG TABLET PO SCH (08:23)
[2022-06-19] MEDS: cefTRIAXone SOD 2 GM in D5W MINI-BAG PLUS 50 ML IV SCH ×2 (12:28→23:30)
[2022-06-19] MEDS: SUCRALFATE 1 GM TAB PO SCH ×3 (12:35→20:06)
[2022-06-19 14:00] VITALS: BP 116/62
[2022-06-19] MEDS ORDERED: SUCRALFATE 1 GM TAB PO SCH (17:30)
[2022-06-19 20:00] VITALS: BP 146/80
[2022-06-19] MEDS: SENNA 8.6 MG TAB (SENOKOT) PO SCH (20:09)
[2022-06-19] MEDS: LATANOPROST 0.005% OPHTH SOLN 2.5 ML OU SCH (20:09)
[2022-06-19] MEDS ORDERED: PILL CUTTER 1 EACH XX PRN (20:45)
[2022-06-19] MEDS: LACTOBACILLUS ACIDOPHILUS CAP (BACID) PO SCH (21:00)
[2022-06-19] MEDS: MIRTAZAPINE 7.5MG PER 1/2 TABLET PO SCH (22:02)
[2022-06-20] MEDS ORDERED: LEVOTHYROXINE 25MCG TABLET (0.025MG) As Ordered ONE (05:24)
[2022-06-20 06:00] VITALS: BP 137/89
[2022-06-20] MEDS: AMPICILLIN SOD 2 GM in D5W MINI-BAG PLUS 100 ML IV SCH ×3 (06:26→17:50)
[2022-06-20] MEDS: LEVOTHYROXINE 25MCG TABLET (0.025MG) PO SCH (06:26)
[2022-06-20] MEDS: SODIUM CHLORIDE 0.9% INJ 10 ML SYR IV SCH ×2 (06:26→17:51)
[2022-06-20] MEDS: FEBUXOSTAT 40 MG TABLET (ULORIC) PO SCH (08:08)
[2022-06-20] MEDS: PANTOPRAZOLE 40MG TAB (PROTONIX) PO SCH (08:09)
[2022-06-20] MEDS: guaiFENesin 200 MG TAB PO SCH ×3 (08:09→20:47)
[2022-06-20] MEDS: SERTRALINE HCL 25 MG TABLET PO SCH (08:09)
[2022-06-20] MEDS: METOPROLOL TARTRATE 100MG TAB PO SCH ×2 (08:09→20:48)
[2022-06-20] MEDS: LACTOBACILLUS ACIDOPHILUS CAP (BACID) PO SCH ×4 (08:09→20:47)
[2022-06-20] MEDS: DOCUSATE SODIUM 100MG CAPSULE PO SCH ×2 (08:09→20:48)
[2022-06-20] MEDS: CALCITRIOL 0.25 MCG CAP (S0169) PO SCH (08:09)
[2022-06-20] MEDS: APIXABAN 2.5 MG TAB (ELIQUIS) PO SCH ×2 (08:10→20:48)
[2022-06-20] MEDS: ATORVASTATIN 20 MG TAB PO SCH (08:10)
[2022-06-20] MEDS: SUCRALFATE 1 GM TAB PO SCH ×4 (08:10→20:47)
[2022-06-20] MEDS: cefTRIAXone SOD 2 GM in D5W MINI-BAG PLUS 50 ML IV SCH ×2 (12:06→23:58)
[2022-06-20] MEDS: SODIUM CHLORIDE 0.9% INJ 10 ML SYR IV PRN (13:19)
[2022-06-20 14:00] VITALS: BP 123/67
[2022-06-20 20:00] VITALS: BP 127/71
[2022-06-20] MEDS: LATANOPROST 0.005% OPHTH SOLN 2.5 ML OU SCH (20:48)
[2022-06-20] MEDS: MIRTAZAPINE 7.5MG PER 1/2 TABLET PO SCH (20:48)
[2022-06-20] MEDS: SENNA 8.6 MG TAB (SENOKOT) PO SCH (20:48)
[2022-06-21] MEDS: AMPICILLIN SOD 2 GM in D5W MINI-BAG PLUS 100 ML IV SCH ×4 (00:01→19:38)
[2022-06-21] MEDS: SODIUM CHLORIDE 0.9% INJ 10 ML SYR IV PRN (01:16)
[2022-06-21 06:00] VITALS: BP 130/80
[2022-06-21] MEDS: LEVOTHYROXINE 25MCG TABLET (0.025MG) PO SCH (06:15)
[2022-06-21] MEDS: SODIUM CHLORIDE 0.9% INJ 10 ML SYR IV SCH ×2 (06:16→19:38)
[2022-06-21] MEDS: SUCRALFATE 1 GM TAB PO SCH ×4 (07:30→21:00)
[2022-06-21] MEDS: LACTOBACILLUS ACIDOPHILUS CAP (BACID) PO SCH ×4 (08:00→21:00)
[2022-06-21] MEDS: FERROUS SULFATE 325MG TAB PO SCH (09:00)
[2022-06-21] MEDS: guaiFENesin 200 MG TAB PO SCH ×3 (09:00→21:00)
[2022-06-21] MEDS: ATORVASTATIN 20 MG TAB PO SCH (09:00)
[2022-06-21] MEDS: FEBUXOSTAT 40 MG TABLET (ULORIC) PO SCH (09:00)
[2022-06-21] MEDS: DOCUSATE SODIUM 100MG CAPSULE PO SCH ×2 (09:00→21:00)
[2022-06-21] MEDS: SERTRALINE HCL 25 MG TABLET PO SCH (09:11)
[2022-06-21] MEDS: CALCITRIOL 0.25 MCG CAP (S0169) PO SCH (09:11)
[2022-06-21] MEDS: PANTOPRAZOLE 40MG TAB (PROTONIX) PO SCH (09:11)
[2022-06-21] MEDS: APIXABAN 2.5 MG TAB (ELIQUIS) PO SCH ×2 (09:11→21:12)
[2022-06-21] MEDS: METOPROLOL TARTRATE 100MG TAB PO SCH ×2 (09:12→21:11)
[2022-06-21 10:08] LABS: BASO # 0.1 10^3/uL (0.0-0.2); BASO % 0.5 % (0.0-1.0); EOS % 0.3 % (0.0-3.0); HEMATOCRIT 30.1 % (42.0-52.0); HEMOGLOBIN 9.8 g/dl (13.5-17.5); LYMPH # 0.4 10^3/uL (1.5-5.0); MEAN CORPUSCULAR HEMOGLOBIN 33.1 pg (27.0-33.0); MEAN CORPUSCULAR HGB CONC 32.6 g/dl (32.0-36.5); MEAN CORPUSCULAR VOLUME 101.7 fl (80.0-96.0); MONO % 10.7 % (2.0-8.0); NEUTROPHILS # 7.7 10^3/uL (1.5-8.5); NEUTROPHILS % 84.2 % (36.0-66.0); PLATELET COUNT, AUTOMATED 254 10^3/uL (150-450); RED BLOOD COUNT 2.96 10^6/uL (4.30-6.10); WHITE BLOOD COUNT 9.2 10^3/uL (4.0-10.0)
[2022-06-21 10:36] LABS: CALCIUM LEVEL 8.6 MG/DL (8.3-10.6); CREATININE FOR GFR 1.92 MG/DL (0.70-1.30); GLOMERULAR FILTRATION RATE 35.4 (>35); POTASSIUM SERUM 3.7 MMOL/L (3.5-5.1)
[2022-06-21] MEDS: cefTRIAXone SOD 2 GM in D5W MINI-BAG PLUS 50 ML IV SCH (11:45)
[2022-06-21 14:00] VITALS: BP 122/74
[2022-06-21] MEDS: SENNA 8.6 MG TAB (SENOKOT) PO SCH (21:00)
[2022-06-21 21:10] VITALS: BP 136/71
[2022-06-21] MEDS: MIRTAZAPINE 7.5MG PER 1/2 TABLET PO SCH (21:11)
[2022-06-21] MEDS: LATANOPROST 0.005% OPHTH SOLN 2.5 ML OU SCH (21:12)
[2022-06-22] MEDS: cefTRIAXone SOD 2 GM in D5W MINI-BAG PLUS 50 ML IV SCH ×2 (00:10→12:50)
[2022-06-22] MEDS: AMPICILLIN SOD 2 GM in D5W MINI-BAG PLUS 100 ML IV SCH ×4 (00:47→17:53)
[2022-06-22] MEDS: SODIUM CHLORIDE 0.9% INJ 10 ML SYR IV PRN (01:20)
[2022-06-22] MEDS: LEVOTHYROXINE 25MCG TABLET (0.025MG) PO SCH (06:35)
[2022-06-22] MEDS: SODIUM CHLORIDE 0.9% INJ 10 ML SYR IV SCH ×2 (06:37→17:53)
[2022-06-22 06:42] VITALS: BP 141/79
[2022-06-22] MEDS: SUCRALFATE 1 GM TAB PO SCH ×4 (07:30→21:09)
[2022-06-22] MEDS: LACTOBACILLUS ACIDOPHILUS CAP (BACID) PO SCH ×4 (08:00→21:10)
[2022-06-22] MEDS: CALCITRIOL 0.25 MCG CAP (S0169) PO SCH (08:16)
[2022-06-22] MEDS: DOCUSATE SODIUM 100MG CAPSULE PO SCH ×2 (08:16→21:00)
[2022-06-22] MEDS: ATORVASTATIN 20 MG TAB PO SCH (08:16)
[2022-06-22] MEDS: APIXABAN 2.5 MG TAB (ELIQUIS) PO SCH ×2 (08:16→21:09)
[2022-06-22] MEDS: SERTRALINE HCL 25 MG TABLET PO SCH (08:17)
[2022-06-22] MEDS: METOPROLOL TARTRATE 100MG TAB PO SCH ×2 (08:17→21:12)
[2022-06-22] MEDS: PANTOPRAZOLE 40MG TAB (PROTONIX) PO SCH (08:17)
[2022-06-22] MEDS: guaiFENesin 200 MG TAB PO SCH ×4 (08:17→21:10)
[2022-06-22] MEDS: FEBUXOSTAT 40 MG TABLET (ULORIC) PO SCH (08:18)
[2022-06-22 20:50] VITALS: BP 141/77
[2022-06-22] MEDS: SENNA 8.6 MG TAB (SENOKOT) PO SCH (21:00)
[2022-06-22] MEDS: MIRTAZAPINE 7.5MG PER 1/2 TABLET PO SCH (21:12)
[2022-06-22] MEDS: LATANOPROST 0.005% OPHTH SOLN 2.5 ML OU SCH (21:13)
[2022-06-23] MEDS: cefTRIAXone SOD 2 GM in D5W MINI-BAG PLUS 50 ML IV SCH ×2 (00:12→12:40)
[2022-06-23] MEDS: AMPICILLIN SOD 2 GM in D5W MINI-BAG PLUS 100 ML IV SCH ×4 (01:09→20:17)
[2022-06-23] MEDS: SODIUM CHLORIDE 0.9% INJ 10 ML SYR IV PRN ×2 (01:10→20:57)
[2022-06-23] MEDS: LEVOTHYROXINE 25MCG TABLET (0.025MG) PO SCH (06:12)
[2022-06-23] MEDS: SODIUM CHLORIDE 0.9% INJ 10 ML SYR IV SCH ×2 (06:13→18:24)
[2022-06-23 06:18] VITALS: BP 120/78
[2022-06-23] MEDS: APIXABAN 2.5 MG TAB (ELIQUIS) PO SCH ×2 (08:58→20:14)
[2022-06-23] MEDS: CALCITRIOL 0.25 MCG CAP (S0169) PO SCH (08:58)
[2022-06-23] MEDS: FEBUXOSTAT 40 MG TABLET (ULORIC) PO SCH (08:59)
[2022-06-23] MEDS: SERTRALINE HCL 25 MG TABLET PO SCH (08:59)
[2022-06-23] MEDS: ATORVASTATIN 20 MG TAB PO SCH (08:59)
[2022-06-23] MEDS: METOPROLOL TARTRATE 100MG TAB PO SCH ×2 (08:59→20:15)
[2022-06-23] MEDS: guaiFENesin 200 MG TAB PO SCH ×3 (09:00→20:16)
[2022-06-23] MEDS: DOCUSATE SODIUM 100MG CAPSULE PO SCH ×2 (09:00→20:16)
[2022-06-23] MEDS: LACTOBACILLUS ACIDOPHILUS CAP (BACID) PO SCH ×4 (09:00→20:16)
[2022-06-23] MEDS: SUCRALFATE 1 GM TAB PO SCH ×4 (09:00→20:16)
[2022-06-23] MEDS: PANTOPRAZOLE 40MG TAB (PROTONIX) PO SCH (09:00)
[2022-06-23 14:00] VITALS: BP 128/61
[2022-06-23 14:03] LABS: HEMATOCRIT 31.3 % (42.0-52.0); MEAN CORPUSCULAR HEMOGLOBIN 32.8 pg (27.0-33.0); MEAN CORPUSCULAR HGB CONC 31.9 g/dl (32.0-36.5); MEAN CORPUSCULAR VOLUME 102.6 fl (80.0-96.0); PLATELET COUNT, AUTOMATED 227 10^3/uL (150-450); RED BLOOD COUNT 3.05 10^6/uL (4.30-6.10); WHITE BLOOD COUNT 9.5 10^3/uL (4.0-10.0)
[2022-06-23 14:32] LABS: CALCIUM LEVEL 8.6 MG/DL (8.3-10.6); CREATININE FOR GFR 1.95 MG/DL (0.70-1.30); GLOMERULAR FILTRATION RATE 34.8 (>35)
[2022-06-23] MEDS: MIRTAZAPINE 7.5MG PER 1/2 TABLET PO SCH (20:15)
[2022-06-23] MEDS: SENNA 8.6 MG TAB (SENOKOT) PO SCH (20:16)
[2022-06-23 20:17] VITALS: BP 160/80
[2022-06-23] MEDS: LATANOPROST 0.005% OPHTH SOLN 2.5 ML OU SCH (20:17)
[2022-06-23 21:02] VITALS: BP 136/78
[2022-06-24] MEDS: cefTRIAXone SOD 2 GM in D5W MINI-BAG PLUS 50 ML IV SCH ×3 (00:20→23:51)
[2022-06-24] MEDS: SODIUM CHLORIDE 0.9% INJ 10 ML SYR IV PRN (00:51)
[2022-06-24] MEDS: AMPICILLIN SOD 2 GM in D5W MINI-BAG PLUS 100 ML IV SCH ×3 (04:06→20:14)
[2022-06-24] MEDS: SODIUM CHLORIDE 0.9% INJ 10 ML SYR IV SCH ×2 (04:42→16:25)
[2022-06-24 05:01] LABS: BASO % 0.5 % (0.0-1.0); EOS % 0.3 % (0.0-3.0); HEMOGLOBIN 9.4 g/dl (13.5-17.5); LYMPH # 0.6 10^3/uL (1.5-5.0); LYMPH % 7.3 % (24.0-44.0); MEAN CORPUSCULAR HEMOGLOBIN 33.2 pg (27.0-33.0); MEAN CORPUSCULAR HGB CONC 32.4 g/dl (32.0-36.5); MEAN CORPUSCULAR VOLUME 102.5 fl (80.0-96.0); MONO # 0.8 10^3/uL (0.0-0.8); MONO % 9.4 % (2.0-8.0); NEUTROPHILS # 7.2 10^3/uL (1.5-8.5); NEUTROPHILS % 81.9 % (36.0-66.0); PLATELET COUNT, AUTOMATED 192 10^3/uL (150-450); RED BLOOD COUNT 2.83 10^6/uL (4.30-6.10); WHITE BLOOD COUNT 8.8 10^3/uL (4.0-10.0)
[2022-06-24 05:38] LABS: CALCIUM LEVEL 8.7 MG/DL (8.3-10.6); GLOMERULAR FILTRATION RATE 33.8 (>35); POTASSIUM SERUM 3.7 MMOL/L (3.5-5.1)
[2022-06-24] MEDS: LEVOTHYROXINE 25MCG TABLET (0.025MG) PO SCH (05:45)
[2022-06-24 06:00] VITALS: BP 141/78
[2022-06-24 07:23] VITALS: BP 143/68
[2022-06-24] MEDS: LACTOBACILLUS ACIDOPHILUS CAP (BACID) PO SCH ×4 (08:00→20:04)
[2022-06-24] MEDS: FERROUS SULFATE 325MG TAB PO SCH (09:00)
[2022-06-24] MEDS: guaiFENesin 200 MG TAB PO SCH ×3 (09:00→20:04)
[2022-06-24] MEDS: DOCUSATE SODIUM 100MG CAPSULE PO SCH ×2 (09:00→20:05)
[2022-06-24] MEDS: FEBUXOSTAT 40 MG TABLET (ULORIC) PO SCH (09:53)
[2022-06-24] MEDS: PANTOPRAZOLE 40MG TAB (PROTONIX) PO SCH (09:53)
[2022-06-24] MEDS: APIXABAN 2.5 MG TAB (ELIQUIS) PO SCH ×2 (09:54→20:15)
[2022-06-24] MEDS: CALCITRIOL 0.25 MCG CAP (S0169) PO SCH (09:54)
[2022-06-24] MEDS: ATORVASTATIN 20 MG TAB PO SCH (09:54)
[2022-06-24] MEDS: METOPROLOL TARTRATE 100MG TAB PO SCH ×2 (09:54→20:15)
[2022-06-24] MEDS: SUCRALFATE SUSP 1GM/10ML UD PO SCH ×2 (12:12→16:24)
[2022-06-24 14:00] VITALS: BP 148/74
[2022-06-24 20:00] VITALS: BP 130/77
[2022-06-24] MEDS: SENNA 8.6 MG TAB (SENOKOT) PO SCH (20:04)
[2022-06-24] MEDS: MIRTAZAPINE 15 MG TAB PO SCH (20:14)
[2022-06-24] MEDS: LATANOPROST 0.005% OPHTH SOLN 2.5 ML OU SCH (20:15)
[2022-06-24 22:17] LABS: C REACTIVE PROTEIN QUANTITATIV 9.1 MG/DL (<1.0)
[2022-06-25] MEDS: AMPICILLIN SOD 2 GM in D5W MINI-BAG PLUS 100 ML IV SCH ×3 (04:38→20:32)
[2022-06-25] MEDS: LEVOTHYROXINE 25MCG TABLET (0.025MG) PO SCH (05:34)
[2022-06-25] MEDS: SODIUM CHLORIDE 0.9% INJ 10 ML SYR IV SCH ×2 (05:35→17:53)
[2022-06-25 06:00] VITALS: BP 149/96
[2022-06-25] MEDS: SUCRALFATE SUSP 1GM/10ML UD PO SCH ×3 (08:30→17:30)
[2022-06-25] MEDS: CALCITRIOL 0.25 MCG CAP (S0169) PO SCH (08:31)
[2022-06-25] MEDS: PANTOPRAZOLE 40MG TAB (PROTONIX) PO SCH (08:31)
[2022-06-25] MEDS: guaiFENesin 200 MG TAB PO SCH ×3 (08:31→20:33)
[2022-06-25] MEDS: APIXABAN 2.5 MG TAB (ELIQUIS) PO SCH ×2 (08:31→20:33)
[2022-06-25] MEDS: METOPROLOL TARTRATE 100MG TAB PO SCH ×2 (08:31→20:31)
[2022-06-25] MEDS: LACTOBACILLUS ACIDOPHILUS CAP (BACID) PO SCH ×4 (08:31→20:33)
[2022-06-25] MEDS: FEBUXOSTAT 40 MG TABLET (ULORIC) PO SCH (08:31)
[2022-06-25] MEDS: ATORVASTATIN 20 MG TAB PO SCH (08:31)
[2022-06-25] MEDS ORDERED: FUROSEMIDE 20MG/2ML VIAL IV ONE (11:45)
[2022-06-25] MEDS: cefTRIAXone SOD 2 GM in D5W MINI-BAG PLUS 50 ML IV SCH (12:26)
[2022-06-25] MEDS: SODIUM CHLORIDE 0.9% INJ 10 ML SYR IV PRN (12:27)
[2022-06-25 15:46] VITALS: BP 139/78
[2022-06-25 19:46] VITALS: BP 126/60
[2022-06-25] MEDS: MIRTAZAPINE 15 MG TAB PO SCH (20:32)
[2022-06-25] MEDS: SENNA 8.6 MG TAB (SENOKOT) PO SCH (20:32)
[2022-06-25] MEDS: LATANOPROST 0.005% OPHTH SOLN 2.5 ML OU SCH (20:33)
[2022-06-26] MEDS: cefTRIAXone SOD 2 GM in D5W MINI-BAG PLUS 50 ML IV SCH (00:13)
[2022-06-26] MEDS: AMPICILLIN SOD 2 GM in D5W MINI-BAG PLUS 100 ML IV SCH (04:07)
[2022-06-26] MEDS: SODIUM CHLORIDE 0.9% INJ 10 ML SYR IV SCH (04:59)
[2022-06-26] MEDS: LEVOTHYROXINE 25MCG TABLET (0.025MG) PO SCH (04:59)
[2022-06-26 05:00] VITALS: BP 145/74
[2022-06-26] MEDS: LACTOBACILLUS ACIDOPHILUS CAP (BACID) PO SCH (08:00)
[2022-06-26] MEDS: SUCRALFATE SUSP 1GM/10ML UD PO SCH (08:43)
[2022-06-26] MEDS: PANTOPRAZOLE 40MG TAB (PROTONIX) PO SCH (08:43)
[2022-06-26] MEDS: APIXABAN 2.5 MG TAB (ELIQUIS) PO SCH (08:43)
[2022-06-26] MEDS: FEBUXOSTAT 40 MG TABLET (ULORIC) PO SCH (08:44)
[2022-06-26] MEDS: ATORVASTATIN 20 MG TAB PO SCH (08:44)
[2022-06-26] MEDS: CALCITRIOL 0.25 MCG CAP (S0169) PO SCH (08:44)
[2022-06-26] MEDS: guaiFENesin 200 MG TAB PO SCH (08:45)
[2022-06-26 08:46] VITALS: BP 145/74
[2022-06-26] MEDS: METOPROLOL TARTRATE 100MG TAB PO SCH (08:46)
[2022-06-26] MEDS ORDERED: TORSEMIDE 20 MG TAB PO ONE (09:30)
[2022-06-26] MEDS ORDERED: SUCR1ORA PO (09:37)
[2022-06-26] MEDS ORDERED: RISATAB3 PO (09:37)
[2022-06-26] MEDS ORDERED: PANT40TA29 PO (09:37)
[2022-06-26] MEDS ORDERED: AMPI2INJ3 IV (09:37)
[2022-06-26] MEDS ORDERED: CEFT1INJ65 IV (09:37)
[2022-06-26] MEDS ORDERED: MIRT-10 PO (09:37)
[2022-06-26] MEDS ORDERED: TORS20TA2 PO (10:03)
== END 2022-06-26 10:17 | DRG 289 ==
LOC: M PM&R 13:30
PROVIDERS: ADMIT Physical Medicine & Rehabilitation; ATTEND Physical Medicine & Rehabilitation
DX: I33.0 Acute and subacute infective endocarditis (principal); N18.4 Chronic kidney disease, stage 4 (severe); R53.1 Weakness; I48.0 Paroxysmal atrial fibrillation; I25.2 Old myocardial infarction; N31.9 Neuromuscular dysfunction of bladder, unspecified; E03.9 Hypothyroidism, unspecified; I12.9 Hypertensive chronic kidney disease with stage 1 through stage 4 chronic kidney disease, or unspecified chronic kidney disease; D50.9 Iron deficiency anemia, unspecified; N40.0 Benign prostatic hyperplasia without lower urinary tract symptoms; G47.33 Obstructive sleep apnea (adult) (pediatric); I25.10 Atherosclerotic heart disease of native coronary artery without angina pectoris; F32.A Depression, unspecified; M10.9 Gout, unspecified; I35.1 Nonrheumatic aortic (valve) insufficiency; M19.90 Unspecified osteoarthritis, unspecified site; H26.9 Unspecified cataract; R63.0 Anorexia; Z74.09 Other reduced mobility; Z74.1 Need for assistance with personal care; Z95.0 Presence of cardiac pacemaker; Z95.5 Presence of coronary angioplasty implant and graft; G47.00 Insomnia, unspecified; Z79.01 Long term (current) use of anticoagulants; Z79.890 Hormone replacement therapy; Z79.899 Other long term (current) drug therapy; Z88.2 Allergy status to sulfonamides; Z66 Do not resuscitate; Z87.891 Personal history of nicotine dependence; R13.10 Dysphagia, unspecified